=== PATIENT | female | born 1970 | race Caucasian/White ===

== ENCOUNTER → 2021-08-13 | Outpatient (CLI) | payer BC, OTHER ==
[~2021-08-13] MED LIST: B COMPLEX1 EACH PO; BERBERINE PO; BUPROPION XL300 MG PO; CYTOMEL 5MCG TA5 MCG PO; ESTROVEN MENOP1 EACH PO; LEVOTHYROXINE88 MCG PO; LEXAPRO 10 MG T10 M2 PO; METFORMIN HCL500 MG PO; NYSTATIN-TRIAMC15 G1 NASAL; PREMARIN30 GM TOP; PROGESTERONE200 MG PO; URSODIOL250 MG PO; VITAMIN D PO; [UNRECOGNIZED DRUG - OTHER] PO
[2021-08-13 09:32] LABS: URINE BILIRUBIN NEGATIVE (Negative); URINE BLOOD TRACE (Negative); URINE CLARITY CLEAR; URINE COLOR YELLOW; URINE GLUCOSE-RANDOM* NEGATIVE (Negative); URINE KETONES NEGATIVE (Negative); URINE NITRITE-REFLEX NEGATIVE (Negative); URINE PROTEIN (DIPSTICK) NEGATIVE (Negative); URINE SPECIFIC GRAVITY 1.015 (1.005-1.035); URINE UROBILINOGEN 0.2 E.U./dl (0.2-1.0)
[2021-08-13 09:33] LABS: HEMATOCRIT 39.5 % (37.0-47.0); HEMOGLOBIN 13.5 gm/dL (12.0-15.0); MCHC 34.2 g/dL (28.0-37.0); MCV 90.6 fL (80.0-100.0); RBC 4.36 mil/uL (4.20-5.00); RDW 14.2 % (10.5-14.5); WBC 8.1 thou/uL (4.0-11.0)
[2021-08-13 09:41] LABS: ALBUMIN 4.1 g/dL (3.4-5.0); CALCIUM 9.4 mg/dL (8.5-10.1); CREATININE 0.7 mg/dL (0.6-1.0); POTASSIUM 4.6 mmol/L (3.5-5.1)
[2021-08-13 09:47] LABS: INR 0.92; PROTIME 10.1 Seconds (10.5-12.1)
[2021-08-13 10:11] LABS: URINE LEUKOCYTES-REFLEX 3+ (Negative)
[2021-08-13 10:14] LABS: CASTS None Seen /LPF (None Seen); SQUAMOUS >10 Many /LPF (0-3); URINE RBC 3-10 Few /HPF (NONE SEEN); URINE WBC-REFLEX 6-15 Few /HPF (0-5)
[2021-08-13 10:15] LABS: BACTERIA-REFLEX 1-9 Few /HPF (None Seen); CRYSTALS None Seen /LPF (None Seen)
--- NOTE | 2021-08-13 11:58 | EKG ---
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 08/13/21 1158 0924 0924 Servando Hammond MD, FACC /EPI
[2021-08-14 07:09] LABS: GLYCOHEMOGLOBIN (HGB A1C) 5.9 % (4.8-5.6)
== END ==
LOC: PAC 08:32
PROVIDERS: ATTEND Orthopaedic Surgery Sports Medicine
DX: M17.11 Unilateral primary osteoarthritis, right knee (principal); E11.9 Type 2 diabetes mellitus without complications